=== PATIENT | male | born 1975 | race Caucasian/White ===

== ENCOUNTER 2017-05-20 06:37 | Emergency (ER) | payer OTHER ==
[~2017-05-20] VITALS: Ht 177.8 cm; Wt 88.5 kg
[~2017-05-20 06:37] MED LIST: COUMADIN5 MG PO; LOVENOX100 MG/1 M SC; PEPCID20 MG PO; PROVENTIL HFA6.7 GM IH
[2017-05-20 07:30] LABS: EOSINOPHIL (%) 2.3 % (0-5); EOSINOPHIL COUNT 0.2 K/uL (0-0.3); HEMATOCRIT 37.3 % (38.0-50.0); IMMATURE GRANULOCYTE (%) 0.4 % (0.0-0.7); INSTRUMENT ABS NEUTROPHIL CT 5.3 K/uL; LYMPHOCYTE COUNT 1.7 K/uL (1.0-2.8); MCH 24.9 PG (29.0-34.0); MCHC 32.2 G/DL (30.0-36.0); MCV 77.5 FL (86-99); MEAN PLAT.VOLUME 9.9 uM^3 (9.0-12.4); MONOCYTE (%) 7.1 % (3-12); MONOCYTE COUNT 0.6 K/uL (0-0.8); NEUTROPHIL (%) 67.8 % (45-76); NEUTROPHIL COUNT 5.3 K/uL (1.8-6.4); PLATELET COUNT 261 K/uL (156-360); RBC DIS.WIDTH-CV 18.3 % (11.8-14.6); RBC DIS.WIDTH-SD 51.3 % (39-53); RED BLOOD COUNT 4.81 M/uL (4.00-5.50); WHITE BLOOD COUNT 7.8 K/uL (4.1-10.2)
[2017-05-20 07:35] LABS: INTER. NORMALIZED RATIO 1.2; PROTHROMBIN TIME 13.6 SEC (10.2-12.9)
[2017-05-20] MEDS ORDERED: COUMADIN1 MG PO (07:36)
[2017-05-20] MEDS ORDERED: bp (07:37)
[2017-05-20 07:55] LABS: ANION GAP 8 MEQ/L (2-14); CHLORIDE 103 MEQ/L (99-109); POTASSIUM 4.1 MEQ/L (3.7-5.4); SAMPLE HEMOLYSIS CHECK 0; SAMPLE ICTERIC CHECK 0; SAMPLE LIPEMIA CHECK 0; SODIUM 136 MEQ/L (136-147)
[2017-05-20 08:00] LABS: GFR ESTIMATE (CALCULATED) > 59 mL/min/; GLUCOSE 102 mg/dL (70-99); UREA NITROGEN (BUN) 9 mg/dL (9-23)
[2017-05-20] MEDS ORDERED: FIORICET 50-301 EAC1 PO (08:42)
[2017-05-20 08:45] VITALS: BP 116/77
== END 2017-05-20 09:19 | disposition home or self-care (01) ==
LOC: EME 06:37
PROVIDERS: Emergency Medicine
DX: R51 Headache (principal); I10 Essential (primary) hypertension; T46.5X6A Underdosing of other antihypertensive drugs, initial encounter; Z91.128 Patient's intentional underdosing of medication regimen for other reason; J45.909 Unspecified asthma, uncomplicated; F32.9 Major depressive disorder, single episode, unspecified; F17.200 Nicotine dependence, unspecified, uncomplicated; Z86.718 Personal history of other venous thrombosis and embolism
CPT/HCPCS: 70450; 80048; 85025; 85610; 99281; 99284; J2270; J2765; J7030

== ENCOUNTER 2017-06-14 07:42 | Emergency (ER) | payer OTHER ==
[~2017-06-14] VITALS: Ht 175.3 cm; Wt 90.3 kg
[~2017-06-14 07:42] MED LIST changes: +COUMADIN1 MG PO; +FIORICET 50-301 EAC1 PO; +bp
[2017-06-14 08:21] LABS: MCH 25.7 PG (29.0-34.0); MCHC 31.8 G/DL (30.0-36.0); MCV 80.9 FL (86-99); MEAN PLAT.VOLUME 9.9 uM^3 (9.0-12.4); PLATELET COUNT 238 K/uL (156-360); RBC DIS.WIDTH-CV 19.2 % (11.8-14.6); RBC DIS.WIDTH-SD 56.3 % (39-53); WHITE BLOOD COUNT 6.1 K/uL (4.1-10.2)
[2017-06-14 08:26] LABS: INTER. NORMALIZED RATIO 1.1
[2017-06-14 08:30] LABS: CHLORIDE 104 mEq/L (99-109); POTASSIUM 4.3 mEq/L (3.7-5.4); SODIUM 137 mEq/L (136-147)
[2017-06-14 08:32] LABS: GLUCOSE 99 mg/dL (70-99)
[2017-06-14 08:34] LABS: ANION GAP 7 MEQ/L (2-14)
[2017-06-14 08:36] LABS: GFR ESTIMATE (CALCULATED) > 59 mL/min/
[2017-06-14 08:37] LABS: UREA NITROGEN (BUN) 12 mg/dL (9-23)
[2017-06-14] MEDS ORDERED: COUMADIN5 MG PO (09:10)
[2017-06-14] MEDS ORDERED: LOVENOX100 MG/1 M SC (09:10)
[2017-06-14 09:30] VITALS: BP 157/102
== END 2017-06-14 09:46 | disposition home or self-care (01) ==
LOC: EME 07:42
PROVIDERS: Emergency Medicine
DX: I82.432 Acute embolism and thrombosis of left popliteal vein (principal); T45.516A Underdosing of anticoagulants, initial encounter; Z91.14 Patient's other noncompliance with medication regimen; Z86.711 Personal history of pulmonary embolism; Z86.718 Personal history of other venous thrombosis and embolism; F17.200 Nicotine dependence, unspecified, uncomplicated; J45.909 Unspecified asthma, uncomplicated; F32.9 Major depressive disorder, single episode, unspecified
CPT/HCPCS: 80048; 85027; 85610; 93971; 99281; 99284; J1650